=== PATIENT | male | born 1945 | race Caucasian/White ===

== ENCOUNTER 2022-01-19 11:35 | Outpatient (CLI) | payer MEDICARE, BC, SELFPAY ==
--- NOTE | 2022-01-19 11:00 | CRLHL7_ITS ---
For Patients: As a result of the Century Cures Act, medical imaging exams and procedure reports are released immediately into your electronic medical record. You may view this report before your referring provider. If you have questions, please contact your health care provider. INDICATION: Followup and ascending aortic aneurysm. TECHNIQUE: Noncontrast chest CT. COMPARISON: December 15, 2020, December 06, 2019, and November 30, 2018. FINDINGS: Stable ascending thoracic aortic aneurysm measuring 4.6 cm. Vascular calcification within the ascending and descending thoracic aorta. Coronary artery calcification compatible with coronary arterial disease. Densely calcified 1.2 cm subpleural granuloma left upper lobe of the lung entirely unchanged. There are no uncalcified indeterminate pulmonary nodules in either lung. There are no pleural or pericardial effusions. The trachea and mainstem bronchi are patent and clear. Stable small mediastinal lymph nodes not pathologically enlarged. Images of the upper abdomen demonstrate normal adrenal glands. No splenomegaly. The upper pole of each kidney is within normal limits. Scattered hypertrophic/degenerative change of the spine. IMPRESSION: Stable 4.6 cm ascending thoracic aortic aneurysm. Please note that all CT scans at this facility use dose modulation, iterative reconstruction, and/or weight-based dosing when appropriate to reduce radiation dose to as low as reasonably achievable. Dictated by Art Ruvalcaba MD @ 01/19/2022 12:07:48 PM (Electronically Signed)
--- OUTSIDE RECORDS SUMMARY | 2022-01-19 11:38 | XMS_ITS | Clinical Summary ---
:1945 Author Organization [facility] [place] [address] Care Team Providers Name Role Phone None Primary Care Provider Unavailable Allergies No known active allergies Medications Medication Sig Dispensed Refills Start Date End Date Status VIAGRA 100 mg tablet 100 mg. 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 Oxygen Saturation - - Inhaled Oxygen Concentration - - Weight - - Height - - Body Mass Index - - Plan of Treatment Health Maintenance Due Date Last Done Comments COVID-19 vaccine series (#1) [birth year]05/1946 Tdap 10/03/1954 Depression screening for age 12+ 1955 BMI (ht and wt on same day) for age 18+ 10/03/1961 Hepatitis C screening for age 18-79 10/03/1961 Tetanus booster 1963 Zoster (shingles) series for age 50+ (1 of 2) 10/03/1993 Pneumococcal series for age 65+ (1 - PCV) 10/03/2008 Influenza for age 65+ 10/21/2021 Results Not on filefrom Last 3 Months Insurance Payer Benefit Plan / Subscriber ID Effective Dates Phone Addre ss Type Group MEDICARE PART B MEDICARE PART B [id number] 2008-Josué ATTN: CLAIMS - HB USE ONLY HB ONLY t [address] [place] [address] MEDICARE - PB MEDICARE PB [id number] 2008-Josué ATTN: CLAIMS USE ONLY ONLY t [address] [place] [address] BLUE CROSS BLUE CROSS OF [id number] 2016-Josué [address] [place] [phone] (Work) Care Teams Or First Assist Registered Nurse Relationship Specialty Start Date End Date None PCP - General 01/29/16 .
== END 2022-01-19 11:36 | disposition home or self-care (01) ==
LOC: CT 11:36
PROVIDERS: PCP Internal Medicine; Visit Provider Internal Medicine
DX: I71.21 Aneurysm of the ascending aorta, without rupture (principal)
CPT/HCPCS: 71250

== ENCOUNTER 2023-02-10 08:42 | Outpatient (CLI) | payer MEDICARE, BC, SELFPAY ==
--- NOTE | 2023-02-10 09:00 | CRLHL7_ITS ---
For Patients: As a result of the Century Cures Act, medical imaging exams and procedure reports are released immediately into your electronic medical record. You may view this report before your referring provider. If you have questions, please contact your health care provider. INDICATION: Aneurysm of ascending aorta TECHNIQUE: CT chest without contrast. COMPARISON: CT 01/19/2022 FINDINGS: Cardiovascular structures: Ascending thoracic aorta measures 4.4 cm. Heart is mildly enlarged coronary calcification. Mediastinum and kee: No sign of mass or adenopathy. Lungs: Left upper lobe granuloma. Pleura and pericardium: No effusions. Chest wall and axilla: No mass or adenopathy. Bones: No significant findings. Upper abdomen: Unremarkable. IMPRESSION: 1. Stable ascending thoracic aortic aneurysm measuring 4.4 cm. Please note that all CT scans at this facility use dose modulation, iterative reconstruction, and/or weight-based dosing when appropriate to reduce radiation dose to as low as reasonably achievable. Dictated by Cintia Jennings MD @ 02/16/2023 9:18:36 PM (Electronically Signed)
== END 2023-02-10 08:43 | disposition home or self-care (01) ==
LOC: CT 08:42
PROVIDERS: PCP Internal Medicine; Visit Provider Internal Medicine
DX: I71.21 Aneurysm of the ascending aorta, without rupture (principal)
CPT/HCPCS: 71250

== ENCOUNTER 2023-07-11 09:35 | Outpatient (CLI) | payer MEDICARE, BC, SELFPAY ==
--- OUTSIDE RECORDS SUMMARY | 2023-07-11 09:39 | XMS_ITS | Clinical Summary ---
Author Name Unknown Organization [email or web address] Address [place], [place] [address] Care Team Providers Care Senior Oracle Database Developer Name Role Phone None Primary Care Provider Unavailabl e Allergies No known active allergies Medications Medication Sig Dispensed Refills Start Date End Date Status VIAGRA 100 mg tablet 100 mg. 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 Oxygen Saturation - - Inhaled Oxygen Concentration - - Weight - - Height - - Body Mass Index - - Plan of Treatment Health Maintenance Due Date Last Done Comments Tdap 10/03/1954 Depression screening for age 12+ 1955 BMI (ht and wt on same day) for age 18+ 10/03/1961 Hepatitis C screening for age 18-79 10/03/1961 Tetanus booster 1963 Zoster (shingles) series for age 50+ (1 of 2) 10/03/18 94 Pneumococcal series for age 65+ (1 of 1 - PCV) 009 COVID-19 vaccine series ( - 2022- season) 3 Influenza for age 65+ 10/22/2023 Care Teams Senior Oracle Database Developer Relationship Specialty Start Date End Date None . PCP - General 01/29/16
== END 2023-07-11 09:36 | disposition home or self-care (01) ==
PROVIDERS: PCP Internal Medicine; Visit Provider Internal Medicine
DX: R53.83 Other fatigue (principal); I10 Essential (primary) hypertension; R19.7 Diarrhea, unspecified
CPT/HCPCS: 80053; 83690; 84443

== ENCOUNTER 2023-07-21 16:25 | Outpatient (CLI) | payer MEDICARE, BC, SELFPAY | END 2023-07-21 16:26 | disposition home or self-care (01) | LOC: NFLDREF 08-03 16:26 | PROVIDERS: PCP Internal Medicine; Visit Provider Internal Medicine | DX: R19.7 Diarrhea, unspecified (principal) | CPT/HCPCS: 82705 ==

== ENCOUNTER 2024-02-19 08:59 | Outpatient (CLI) | payer MEDICARE, BC, SELFPAY | END 2024-02-19 09:00 | disposition home or self-care (01) | LOC: NFLDREF 09:00 | PROVIDERS: PCP Internal Medicine; Visit Provider Internal Medicine | DX: Z01.818 Encounter for other preprocedural examination (principal); K40.90 Unilateral inguinal hernia, without obstruction or gangrene, not specified as recurrent | CPT/HCPCS: 80048 ==

== ENCOUNTER 2024-04-18 09:50 | Outpatient (CLI) | payer MEDICARE, BC, SELFPAY | END 2024-04-18 09:51 | disposition home or self-care (01) | LOC: CT 09:50 | PROVIDERS: PCP Internal Medicine; Visit Provider Internal Medicine | DX: I71.20 Thoracic aortic aneurysm, without rupture, unspecified (principal) | CPT/HCPCS: 71250 ==

== ENCOUNTER 2024-08-15 09:52 | Outpatient (CLI) | payer MEDICARE, BC, SELFPAY | END 2024-08-15 09:53 | disposition home or self-care (01) | LOC: NFLDREF 08-19 15:01 | PROVIDERS: PCP Internal Medicine; Referring Provider Internal Medicine; Visit Provider Internal Medicine | DX: I48.20 Chronic atrial fibrillation, unspecified (principal); E53.8 Deficiency of other specified B group vitamins; I11.9 Hypertensive heart disease without heart failure | CPT/HCPCS: 80048; 82607 ==

== ENCOUNTER 2024-08-28 11:04 | Outpatient (CLI) | payer MEDICARE, BC, SELFPAY ==
--- NOTE | 2024-08-28 11:15 | CRLHL7_ITS ---
For Patients: As a result of the Century Cures Act, medical imaging exams and procedure reports are released immediately into your electronic medical record. You may view this report before your referring provider. If you have questions, please contact your health care provider. Indication: Peripheral vascular disease, unspecified Comparison: None Technique: Routine duplex arterial examination of the left lower extremity including 2D and spectral analysis, and color Doppler imaging was performed. Findings: Extensive atherosclerotic disease noted throughout the left lower extremity runoff. Elevated velocity within the left mid femoral artery measuring 218 cm/second. Multiphasic velocities in the common femoral, deep femoral, proximal femoral and mid femoral arteries. Monophasic flow distal femoral artery, popliteal artery, peroneal artery, posterior tibial artery, anterior tibial artery and dorsalis pedis artery. Impression: Extensive atherosclerotic disease. Elevated velocity in the mid femoral artery suggesting 50-75 percent stenosis. Monophasic waveforms distal to the femoral artery. Dictated by Reilly Reid MD @ 08/28/2024 11:58:00 AM (Electronically Signed)
== END 2024-08-28 11:05 | disposition home or self-care (01) ==
LOC: US 11:04
PROVIDERS: PCP Internal Medicine; Visit Provider Internal Medicine
DX: I73.9 Peripheral vascular disease, unspecified (principal); I70.202 Unspecified atherosclerosis of native arteries of extremities, left leg
CPT/HCPCS: 93926

== ENCOUNTER 2024-09-04 09:54 | Outpatient (CLI) | payer MEDICARE, BC, SELFPAY | END 2024-09-04 09:55 | disposition home or self-care (01) | LOC: RAD 09:55 | PROVIDERS: PCP Internal Medicine; Visit Provider Internal Medicine | DX: R06.09 Other forms of dyspnea (principal); I35.1 Nonrheumatic aortic (valve) insufficiency; I34.0 Nonrheumatic mitral (valve) insufficiency; I07.1 Rheumatic tricuspid insufficiency | CPT/HCPCS: 93306 ==

== ENCOUNTER 2024-11-29 15:34 | Outpatient (CLI) | payer MEDICARE, BC, SELFPAY ==
--- NOTE | 2024-11-29 15:45 | CRLHL7_ITS ---
For Patients: As a result of the Century Cures Act, medical imaging exams and procedure reports are released immediately into your electronic medical record. You may view this report before your referring provider. If you have questions, please contact your health care provider. INDICATION: CT chest 04/18/2024 COMPARISON: none TECHNIQUE: Grande scale and color Doppler images were acquired of the thyroid gland. FINDINGS: Isthmus measures 3.7 millimeters. Thyroid echotexture is heterogeneous. The right lobe measures 3.3 x 0.9 x 1.0 cm and the left lobe measures 4.1 x 1.5 x 1.7 cm in size. There are no suspicious masses or nodules. The color Doppler images demonstrate normal vascularity. There is no evidence of cervical lymphadenopathy or parathyroid mass. IMPRESSION: Heterogeneous thyroid without nodule. Dictated by Reilly Reid MD @ 11/29/2024 4:40:29 PM (Electronically Signed)
== END 2024-11-29 15:35 | disposition home or self-care (01) ==
LOC: US 15:35
PROVIDERS: PCP Internal Medicine; Visit Provider Internal Medicine
DX: E04.1 Nontoxic single thyroid nodule (principal)
CPT/HCPCS: 76536

== ENCOUNTER 2025-01-27 16:38 | Outpatient (CLI) | payer MEDICARE, BC, SELFPAY | END 2025-01-27 16:39 | disposition home or self-care (01) | PROVIDERS: PCP Internal Medicine; Visit Provider Internal Medicine | DX: Z01.818 Encounter for other preprocedural examination (principal) | CPT/HCPCS: 80053; 86850; 86900; 86901 ==